=== PATIENT | female | born 1990 | race American Indian/Alaskan Native ===

== ENCOUNTER 2017-01-11 14:27 | Emergency (ER) | payer OTHER ==
[2017-01-11 14:33] VITALS: BMI 27.6
[2017-01-11] MEDS ORDERED: DiphenhydrAMINE 50 mg/ml Inj IVP STA (14:48)
[2017-01-11] MEDS ORDERED: Sodium Chloride 0.9% 1,000 ML IV STA (14:49)
--- NOTE | 2017-01-11 14:49 | ED PDOC ---
Arrival/HPI - General Chief Complaint: Shortness Of Breath Time Seen by Provider: 01/11/17 14:31 Historian: Patient - History of Present Illness Narrative History of Present Illness (Text): 01/11/17 14:46 26 y/o female, pmh including asthma/seasonal allergies, nkda, c/o coughing/ shortness of breath with chest pain started early this morning. Pt. 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 Past Medical History - Provider Review Nursing Documentation Reviewed: Yes - Infectious Disease Hx of Infectious Diseases: None - Pulmonary Hx Asthma: Yes - Psychiatric Hx Substance Use: No Family/Social History - Physician Review Nursing Documentation Reviewed: Yes Family/Social History: Unknown Family HX Smoking Status: Current Some Days Smoker Hx Alcohol Use: Yes Frequency of alcohol use: Socially Hx Substance Use: No Allergies/Home Meds Allergies/Adverse Reactions: Allergies No Known Allergies Allergy (Verified 01/11/17 14:33) Home Medications: Home Meds Medication Instructions Recorded Confirmed Albuterol HFA [Ventolin HFA 90 2 puff INH BID PRN 01/11/17 01/11/17 mcg/actuation (8 g)] Review of Systems - Review of Systems Constitutional: absent: Fatigue, Fevers Eyes: absent: Vision Changes ENT: absent: Hearing Changes Respiratory: SOB, Cough Cardiovascular: Chest Pain Gastrointestinal: absent: Abdominal Pain, Nausea, Vomiting Musculoskeletal: absent: Arthralgias, Back Pain, Neck Pain, Joint Swelling, Myalgias Hemo/Lymphatic: absent: Adenopathy Psychiatric: absent: Anxiety, Depression, Suicidal Ideation Physical Exam Vital Signs Reviewed: Yes Vital Signs Temp Pulse Resp BP Pulse Ox 01/11/17 17:32 98 F 80 18 138/76 98 01/11/17 14:44 20 01/11/17 14:28 98.4 F 76 18 155/84 H 97 Temperature: Afebrile Blood Pressure: Normal Pulse: Regular Respiratory Rate: Normal Appearance: Positive for: Well-Appearing, Non-Toxic, Comfortable Pain Distress: Moderate Mental Status: Positive for: Alert and Oriented X 3 - Systems Exam Head: Present: Atraumatic, Normocephalic Pupils: Present: PERRL Extroacular Muscles: Present: EOMI Conjunctiva: Present: Normal Mouth: Present: Moist Mucous Membranes Neck: Present: Normal Range of Motion Respiratory/Chest: Present: Clear to Auscultation, Good Air Exchange, Decreased Breath Sounds (mild decrease aeration on bilaterally). No: Respiratory Distress , Accessory Muscle Use, Wheezes, Rales, Rhonchi, Tachypneic, Tender to Palpation Cardiovascular: Present: Regular Rate and Rhythm, Normal S1, S2. No: Murmurs Abdomen: Present: Normal Bowel Sounds. No: Tenderness, Distention, Peritoneal Signs, Rebound, Guarding Back: Present: Normal Inspection Upper Extremity: Present: Normal Inspection. No: Cyanosis, Edema Lower Extremity: Present: Normal Inspection. No: Edema Neurological: Present: GCS=15, Speech Normal, Motor Func Grossly Intact, Gait Normal, Memory Normal Skin: Present: Warm, Dry, Normal Color. No: Rashes Psychiatric: Present: Alert, Oriented x 3, Normal Insight, Normal Concentration Medical Decision Making ED Course and Treatment: 01/11/17 14:46 -labs/ua/dimer -ekg -chest xray -duoneb [id number] prn -IVF/toradol/benadry/prednisone 60mg po -radiation monitor -observe and reassess 01/11/17 17:22 -Labs are non-significant -Chest x-ray show no active disease -EKG: NSR @ 72 BPM, no ST elevation or depression, no T wave inversion, no heart block. -Chest pain and shortness of breath breath resolved, pt. feels completely relief , no indication of further evaluation or labs at this point. -Discharge home with prednisone, z-pack, zyrtec, albuterol MDI, stay hydrated, follow up with your own pmd within 2 days, return to the ER for any new or worsening signs or symptoms. - Lab Interpretations Lab Results: 01/11/17 15:30 01/11/17 15:30 Lab Results 01/11/17 15:30: Sodium 138, Potassium 4.1, Chloride 105, Carbon Dioxide 28, Anion Gap 9 L, BUN 16, Creatinine 0.8, Est GFR ( Amer) > 60, Est GFR (Non -Af Amer) > 60, Random Glucose 82, Calcium 9.0, Total Bilirubin 0.4, AST 27, ALT 28, Alkaline Phosphatase 79, Total Protein 7.2, Albumin 3.9, Globulin 3.3, Albumin/Globulin Ratio 1.2 01/11/17 15:30: D-Dimer, Quantitative 0.19 01/11/17 15:30: WBC 5.8, RBC 4.36, Hgb 12.5, Hct 36.6, MCV 83.9, MCH 28.7, MCHC 34.2, RDW 13.2, Plt Count 234, MPV 10.1, Gran % 32.5 L, Lymph % (Auto) 53.2 H, [place] % (Auto) 8.9 H, Eos % (Auto) 4.5, Baso % (Auto) 0.9, Gran # 1.90, Lymph # 3.1, [place] # 0.5, Eos # 0.3, Baso # 0.05 I have reviewed the lab results: Yes Interpretation: No clinic. 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 Interpreted by ED Physician: Yes Type: 12 lead EKG Comparison: No previous EKG avail. - Medication Orders Current Medication Orders: Discontinued Medications Albuterol/Ipratropium (Duoneb 3 Mg/0.5 Mg (3 Ml) Ud) 3 ml IH Q15M KANNAN Stop: 01/11/17 15:16 Last Admin: 01/11/17 15:44 Dose: 3 ml Diphenhydramine HCl (Benadryl) 25 mg IVP STAT STA Stop: 01/11/17 14:49 Last Admin: 01/11/17 15:35 Dose: 25 mg Sodium Chloride (Sodium Chloride 0.9%) 1,000 mls @ 999 mls/hr IV .Q1H1M STA Stop: 01/11/17 15:49 Last Admin: 01/11/17 15:15 Dose: 999 mls/hr Ketorolac Tromethamine (Toradol) 30 mg IVP STAT STA Stop: 01/11/17 14:49 Last Admin: 01/11/17 15:35 Dose: 30 mg Prednisone (Prednisone Tab) 60 mg PO STAT ONE Stop: 01/11/17 14:49 Last Admin: 01/11/17 15:36 Dose: 60 mg - 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 Disposition/Present on Arrival - Present on Arrival Any Indicators Present on Arrival: No History of DVT/PE: Yes History of Uncontrolled Diabetes: Yes Urinary Catheter: Yes History of Decub. Ulcer: Yes History Surgical Site Infection Following: None - Disposition Have Diagnosis and Disposition been Completed?: Yes Diagnosis: URI, acute, Asthma attack Disposition: HOME/ ROUTINE Disposition Time: 17:24 Patient Plan: Discharge Condition: IMPROVED Additional Instructions: Discharge home with prednisone, z-pack, zyrtec, albuterol MDI, stay hydrated, follow up with your own pmd within 2 days, return to the ER for any new or worsening signs or symptoms. Prescriptions: Albuterol HFA [Ventolin HFA 90 mcg/actuation (8 g)] 2 puff IH [id number] PRN #1 in PRN Reason: Other Azithromycin [Zithromax] 250 mg PO DAILY #4 tab Cetirizine HCl [Zyrtec] 10 mg PO DAILY #10 capsule predniSONE [Prednisone] 2 tab PO DAILY #8 tab Referrals: María Holcomb MD [Primary Care Provider] - Follow up with primary Forms: WORK NOTE, [facility] (Azeri)
[2017-01-11] MEDS: Albuterol-Ipratrop 3 mg / 0.5 (3 ml) UD IH SCH ×3 (15:15→15:44)
[2017-01-11 15:42] LABS: ADD MANUAL DIFF? NO
[2017-01-11 15:51] LABS: BASO # 0.05 K/mm3 (0.0-2.0); BASO % 0.9 % (0.0-3.0); EOS # 0.3 (0.0-0.7); EOS % 4.5 % (1.5-5.0); GRAN % 32.5 % (50.0-68.0); HEMATOCRIT 36.6 % (36.0-48.0); LYMPH # 3.1 (1.2-3.4); LYMPH % 53.2 % (22.0-35.0); MEAN CELL VOLUME 83.9 fL (80.0-105.0); MEAN CORPUSCULAR HEMOGLOBIN 28.7 pg (25.0-35.0); MEAN CORPUSCULAR HGB CONC 34.2 g/dl (31.0-37.0); MEAN PLATELET VOLUME 10.1 fl (7.0-11.0); MONO # 0.5 (0.1-0.6); MONO % 8.9 % (1.0-6.0); PLATELET COUNT 234 10^3/uL (120.0-450.0); RED CELL DISTRIBUTION WIDTH 13.2 % (11.5-14.5); WHITE BLOOD COUNT 5.8 10^3/ul (4.5-11.0)
[2017-01-11 16:04] LABS: ALB/GLOB RATIO 1.2 (1.1-1.8); ALKALINE PHOSPHATASE 79 U/L (38-133); ALT/SGPT 28 U/L (7-56); AST/SGOT 27 U/L (15-39); BILIRUBIN,TOTAL 0.4 mg/dL (0.2-1.3); BLOOD UREA NITROGEN 16 mg/dL (7-21); CARBON DIOXIDE 28 mmol/L (21-33); CHLORIDE 105 mmol/L (98-107); GFR AFRICAN-AMERICAN > 60; GLUCOSE,RANDOM 82 mg/dL (70-110); POTASSIUM 4.1 mmol/L (3.6-5.0); SODIUM 138 mmol/L (132-148); TOTAL PROTEIN 7.2 g/dL (5.8-8.3)
[2017-01-11 17:33] VITALS: BP 138/76; PULSE 80; RESP 18; TEMP 98; O2SAT 98
--- NOTE | 2017-01-11 17:59 | RAD ---
HISTORY: shortness of breath COMPARISON: No prior. FINDINGS: LUNGS: No active pulmonary disease. PLEURA: No significant pleural effusion identified, no pneumothorax apparent. CARDIOVASCULAR: Normal. OSSEOUS STRUCTURES: No significant abnormalities. VISUALIZED UPPER ABDOMEN: Normal. OTHER FINDINGS: None. IMPRESSION: No active disease. Concordant results with the preliminary interpretation rendered by the emergency department physician procedure.
--- NOTE | 2017-01-12 14:14 | CARD ---
APPROVED REPORT EKG Measurement Heart [id number] <Conclusion> Normal sinus rhythm Normal ECG
== END 2017-01-11 17:34 | disposition home or self-care (01) ==
LOC: ED 14:27
DX: J45.909 Unspecified asthma, uncomplicated (principal); J06.9 Acute upper respiratory infection, unspecified; Z72.0 Tobacco use
CPT/HCPCS: 71010; 80053; 85025; 85378; 93005; 94640; 96361; 96374; 96375; 99283; J1200; J1885; J7040